=== PATIENT | male | born 1990 | race Caucasian/White ===

== ENCOUNTER 2016-10-28 17:51 | Emergency (ER) | payer BC ==
[2016-10-28 18:16] VITALS: BP 120/41; PULSE 54; RESP 16; TEMP 98.1; O2SAT 96
--- NOTE | 2016-10-28 18:49 | UCPHY ---
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 He is here for a wound check and have Steri-Strips removed. He reports no pain at the wound site and no other complaints ROS: No fevers. No drainage from the wound site or redness. He reports no recent lightheadedness or other cardiac symptoms since the patient was placed last week in [place]. 5 point ROS is otherwise negative. 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 General: No acute distress Eyes: Pupils equal and react to light. Extraocular motions are intact. Lungs: No respiratory distress. Cardiac: Brisk capillary refill is intact throughout. Pulses are 2+ and symmetric in the affected extremity. Skin: No rash or pallor. There is a clean dry intact surgical incision to the right upper chest wall Steri-Strips in place. Steri-Strips are removed and there is no erythema discharge or other concerning findings to the wound. Neuro: Alert Constitutional: Initial Vital Signs Temperature (C) 36.7 C 10/28/16 18:15 Heart Rate 54 L 10/28/16 18:15 Respiratory Rate 16 10/28/16 18:15 Blood Pressure 120/41 L 10/28/16 18:15 O2 Sat (%) 96 10/28/16 18:15 O2 Delivery Mode Room Air Allergies/Adverse Reactions: No Known Allergies Allergy (Unverified 10/28/16 18:14) Home Medications: Medication Instructions Recorded Lisinopril 10/28/16 MDM/Departure - MDM ED Course/Re-evaluation: I removed the patient's Steri-Strips. I cleaned the wound. Our tech placed a Band-Aid. I counseled the patient regarding wound care. No evidence of wound infection or other complicating factors. - Depart Disposition: Home, Routine, Self-Care Clinical Impression: Visit for wound check Condition: Good Instructions: Acute Wound Care (ED) Additional Instructions: Diagnosis: Wound check Plan: Clean the wound daily with warm soapy water Band-Aid if needed Return if he develops redness, discharge or other concerns for infection. Referrals: NONE *PRIMARY CARE P,. [Primary Care Provider] - As per Instructions - PQRS PQRS Measurement: NA
== END 2016-10-28 18:55 | disposition home or self-care (01) ==
LOC: CED 17:51
DX: Z48.01 Encounter for change or removal of surgical wound dressing (principal); Z95.0 Presence of cardiac pacemaker
CPT/HCPCS: 99203-PO; G0463-PO